=== PATIENT | female | born 1955 | race Caucasian/White ===

== ENCOUNTER 2021-11-13 22:16 | Emergency (ER) | payer OTHER ==
[2021-11-13 23:22] LABS: HEMOGLOBIN 11.6 gm/dl (12.3-15.3); RED BLOOD COUNT 4.67 M/UL (4.00-5.10); WHITE BLOOD COUNT 4.9 K/UL (4.5-11.0)
[2021-11-13 23:57] LABS: BUN/CREATININE RATIO 21 (0-10)
[2021-11-14] MEDS ORDERED: ZITHROMAX250 MG PO (04:39)
[2021-11-14] MEDS ORDERED: DECADRON4 MG PO (04:39)
[2021-11-14] MEDS ORDERED: OMNICEF 300 MG300 MG PO (04:39)
[2021-11-14] MEDS ORDERED: ASPIRIN CHEWABL81 MG PO (04:46)
== END 2021-11-14 05:10 | disposition home or self-care (01) ==
LOC: ER1 22:16
PROVIDERS: Family Medicine
DX: U07.1 COVID-19 (principal); I11.9 Hypertensive heart disease without heart failure; E11.9 Type 2 diabetes mellitus without complications
CPT/HCPCS: 36600; 71045; 80053; 81001; 82550; 82553; 82803; 83605; 84484; 85025; 85379; 85610; 87040; 96365; 96366; 96375; 99285; J0456; J0696; J1100; J7030; Q9967

== ENCOUNTER → 2022-07-14 | Outpatient (CLI) | payer MEDICARE, OTHER ==
[~2022-07-14] MED LIST: ASPIRIN CHEWABL81 MG PO; DECADRON4 MG PO; OMNICEF 300 MG300 MG PO; ZITHROMAX250 MG PO
== END ==
LOC: EMI 12:55
DX: G31.84 Mild cognitive impairment of uncertain or unknown etiology (principal); U09.9 Post COVID-19 condition, unspecified
CPT/HCPCS: 70551